=== PATIENT | female | born 1950 | race Two or more races ===

== ENCOUNTER 2023-05-16 08:21 | Outpatient (CLI) | payer OTHER | END 2023-05-16 08:22 | disposition home or self-care (01) | LOC: NUCLEAR 08:21 | DX: C34.92 Malignant neoplasm of unspecified part of left bronchus or lung (principal) | CPT/HCPCS: 78815; A9552 ==

== ENCOUNTER 2024-08-10 08:25 | Outpatient (CLI) | payer OTHER | END 2024-08-10 08:26 | disposition home or self-care (01) | LOC: NUCLEAR 08:25 | DX: C34.92 Malignant neoplasm of unspecified part of left bronchus or lung (principal) | CPT/HCPCS: 78816; A9552 ==